=== PATIENT | female | born 1955 | race Caucasian/White ===

== ENCOUNTER 2017-07-26 09:21 | Emergency (ER) | payer MEDICAID ==
[~2017-07-26] VITALS: Ht 167.6 cm; Wt 73.0 kg
[2017-07-26] MEDS ORDERED: KETOROLAC 60MG/2ML VIAL IM ONE (10:30)
[2017-07-26] MEDS ORDERED: MORPHINE SULFATE 10 MG/ML CPJ IM ONE (10:30)
[2017-07-26] MEDS ORDERED: ONDANSETRON 4MG ODT PO ONE (10:30)
[2017-07-26 10:48] LABS: HEMATOCRIT. 43.2 % (36.0-48.0); HEMOGLOBIN. 14.5 g/dL (12.0-16.0); MEAN CORPUSCULAR HEMOGLOBIN 31.8 pg (28.0-32.0); MEAN CORPUSCULAR VOLUME 94.7 fL (81.0-99.0); PLATELET 179 x1000/uL (130-400); RED BLOOD CELL COUNT 4.56 mill/uL (4.2-5.4); RED CELL DISTRIBUTION WIDTH 16.1 % (11.6-14.6)
[2017-07-26 10:52] LABS: INR 1.2; PARTIAL THROMBOPLASTIN TIME 31.8 sec (23.4-31.0); PROTHROMBIN TIME 12.1 sec (9.4-11.6)
[2017-07-26 11:01] LABS: CARBON DIOXIDE 26 mEq/L (21-32); CHLORIDE 100 mEq/L (98-107); CREATINE KINASE 158 IU/L (26-192); TROPONIN I < 0.02 ng/mL (0.00-0.04)
[2017-07-26 11:45] LABS: PLATELET ESTIMATE NORMAL
[2017-07-26 12:52] VITALS: BP 127/62
== END 2017-07-26 13:17 | disposition home or self-care (01) ==
LOC: ER 09:21
DX: M79.605 Pain in left leg (principal); M79.604 Pain in right leg; G89.18 Other acute postprocedural pain; I73.9 Peripheral vascular disease, unspecified; F17.200 Nicotine dependence, unspecified, uncomplicated; Z86.718 Personal history of other venous thrombosis and embolism; Z87.11 Personal history of peptic ulcer disease; Z95.820 Peripheral vascular angioplasty status with implants and grafts
CPT/HCPCS: 36415; 80053; 82550; 83690; 83880; 84443; 84484; 85025; 85610; 85730; 93005; 93970; 96372; 99285; J1885; J2270; Q0162; Z7610